=== PATIENT | male | born 1995 | race Caucasian/White ===

== ENCOUNTER 2020-01-15 20:44 | Emergency (ER) | payer OTHER ==
[~2020-01-15] VITALS: Ht 195.6 cm; Wt 77.3 kg
[2020-01-15 20:44] VITALS: TEMP 98.2
[2020-01-15 21:04] LABS: BASO % 0.4 % (0.0-2.0); EOS # 0.2 (0.0-0.7); EOS % 1.7 % (0-4.0); GRAN # 7.5 (1.4-6.5); HEMATOCRIT 44.5 % (42.0-52.0); HEMOGLOBIN 15.5 g/dl (13.5-18.0); LYMPH # 2.3 (1.2-3.4); LYMPH % 21.4 % (20.0-51.0); MEAN CELL VOLUME 87 fl (80.0-100.0); MEAN CORPUSCULAR HEMOGLOBIN 30 pg (27.0-31.0); MEAN CORPUSCULAR HGB CONC 35 g/dl (33.0-37.0); MEAN PLATELET VOLUME 9.4 fl (7.4-10.4); MONO # 0.7 (0.1-0.6); MONO % 6.1 % (1.7-9.3); PLATELET COUNT 230 K/mm3 (130-400); RED BLOOD COUNT 5.11 M/mm3 (4.20-5.60); REDCELL DISTRIBUTION WIDTH-CV 11.9 % (11.5-14.5)
[2020-01-15 21:18] LABS: ALBUMIN 4.4 gm/dL (3.5-5.0); CREATININE, serum 1.12 (0.66-1.25); TOTAL PROTEIN 6.9 gm/dL (6.4-8.2)
[2020-01-15 21:45] LABS: PROLACTIN 60.9 ng/mL (3.7-17.9)
[2020-01-15 22:00] VITALS: BP 129/72; PULSE 72
== END 2020-01-15 22:35 | disposition home or self-care (01) ==
LOC: COL.ER 20:44
PROVIDERS: Emergency Medicine
DX: R56.9 Unspecified convulsions (principal); Z87.891 Personal history of nicotine dependence
CPT/HCPCS: J1885; J2060

== ENCOUNTER 2020-12-21 00:13 | Emergency (ER) | payer BC ==
[~2020-12-21] VITALS: Ht 195.6 cm; Wt 74.1 kg
[2020-12-21 00:21] VITALS: BP 148/86; TEMP 98
[2020-12-21 03:05] VITALS: PULSE 78
== END 2020-12-21 03:05 | disposition home or self-care (01) ==
LOC: COL.ER 00:13
DX: M25.561 Pain in right knee (principal); Z88.8 Allergy status to other drugs, medicaments and biological substances
CPT/HCPCS: J1885